=== PATIENT | male | born 1970 | race Caucasian/White ===

== ENCOUNTER → 2018-04-01 10:36 | Outpatient (CLI) | payer OTHER, SELFPAY ==
--- NOTE | 2018-04-01 10:46 | CT_ITS ---
STUDY: CT SOFT TISSUE NECK WITH CONTRAST REASON FOR EXAM: Male, 47 years old. Treatment planning, squamous carcinoma of right tonsil. RADIATION DOSAGE (If Supplied By Facility): CTDIvol = ( 12.60 ) mGy, DLP = ( 412.46 ) mGycm TECHNIQUE: The patient was scanned in a multi-detector CT scanner. High resolution transaxial imaging was performed following intravenous administration of 100ML ml of Isovue 300 contrast material. Individualized dose optimization techniques were used for this CT. COMPARISON: Whole body PET/CT March 31, 2018. FINDINGS: Normal bilateral parotid glands. Normal bilateral doweler spaces. Normal bilateral parapharyngeal spaces. Normal bilateral carotid spaces. Normal bilateral sublingual and submandibular glands and spaces. Normal visualized nasopharynx. Normal retropharyngeal space. Normal perivertebral space. There is no overtly demonstrated mass or asymmetric fullness in the right side of the oral cavity, base of the tongue, or tonsillar pillar to correlate to the area of abnormal FDG uptake on PET/CT. There are a few nonspecific left level 1B cervical lymph nodes and bilateral benign-appearing level II cervical nodes with fatty surya. There is no demonstrated solid or cystic mass lesion. There is no abnormal contrast enhancement. Normal epiglottis, bilateral vallecula and hypopharynx. The pre-epiglottic and paraglottic adipose spaces are normal. Normal visualized bilateral piriform sinuses, aryepiglottic folds, vocal cords, and arytenoid-cricoid articulations. Normal subglottic trachea. Normal bilateral lobes of the thyroid gland. Normal visualized pulmonary apices. Normal visualized paranasal sinuses. Normal visualized cervical spine. CT/Soft Tissue Neck WITH Contrast IMPRESSION: No significant masslike fullness or asymmetry in the right side of the oral cavity, base of the tongue, or tonsillar pillar to correlate to the area of abnormality on PET/CT. No suspicious adenopathy. Electronically Signed: Librado Zamora MD at 13:01 EST , Service support ,
[2018-04-01 10:51] LABS: Absolute Lymphocyte Count 2.39 X10^3/ul (0.83-4.51); Absolute Neutrophil Count 6.5 X10^3/uL (2.0-7.7); Basophil# 0.07 X10^3/uL; Basophil% 0.7 % (0-1); Eosinophil# 0.25 X10^3/uL; Eosinophils% 2.5 % (0-5); Hematocrit 42.4 % (40-54); Hemoglobin 14.3 g/dl (13.0-16.5); Lymphocyte # 2.39 X10^3/ul (4.0); Lymphocyte % 23.9 % (19-41); Mean Corp Hgb Conc 33.7 g/gl (32-36); Mean Corpuscular Hgb 29.4 pg (27.0-32.0); Mean Corpuscular Volume 87.2 fL (80-94); Mean Platelet Vol. 12.3 fl (6.2-12.0); Monocyte# 0.73 X10^3/uL; Monocyte% 7.3 % (0-10); Neutrophil # 6.51 X10^3/uL (2.7-7.7); Neutrophil % 65.2 % (47-70); Platelet Count 205 K/mm3 (150-450); RBC Distribution Width CV 14.2 % (11.6-14.6); RBC Distribution Width SD 44.5 fl (35.1-43.9); Red Blood Count 4.86 M/mm3 (4.6-6.2)
[2018-04-01 10:53] LABS: POSITIVE COUNT NO; POSITIVE DIFFERENTIAL NO; POSITIVE MORPHOLOGY NO
[2018-04-01 11:01] LABS: Creatinine, Serum 1.14 mg/dL (0.70-1.30); EST Glomerular Filtration Rate 73 mL/min (>60); Est Glom Filt Rate - Afr Amer 88 mL/min (>60)
[2018-04-01 11:21] LABS: EGFR FINGERSTICK > 60.0000 mL/min (>60)
== END ==
LOC: CT 10:37
PROVIDERS: Family Provider Family Medicine; PCP Family Medicine; Referring Provider Radiology Radiation Oncology; Visit Provider Radiology Radiation Oncology
DX: Z01.818 Encounter for other preprocedural examination (principal); C02.4 Malignant neoplasm of lingual tonsil
CPT/HCPCS: 36415; 70491; 82565; 85025; Q9967

== ENCOUNTER 2018-04-14 11:25 | Day surgery (SDC) | payer OTHER, SELFPAY ==
[2018-04-08 09:51] VITALS: BMI 36.7
[2018-04-08 10:58] VITALS: BMI 36.7
[2018-04-14] VITALS (9 sets, daily range): BP systolic 108–125; BP diastolic 73–93; PULSE 71–88; RESP 16–18; TEMP 36.5–36.9; O2SAT 93–97; BMI 36.4
[2018-04-14] MEDS: Cefazolin 2 GM in 0.9% Normal Saline 100 ML IV (13:11)
[2018-04-14] MEDS: Bupivacaine Mpf 0.5% 30 ML VIAL (13:25)
--- NOTE | 2018-04-14 14:05 | OP.PCM_ITS ---
Problem List (1) Encounter for adjustment or management of vascular access device Status: Acute (2) Oropharyngeal carcinoma Status: Acute Report of Operation Date of Procedure: 04/14/18 Pre-Operative Diagnosis: Oral pharyngeal carcinoma and need for vascular access port Post-Operative Diagnosis: Same Surgery/Procedure Performed:: Fluoroscopy and ultrasound-guided right chest port placement utilizing right IJ Description of Surgical Findings:: The patient decided immediately before surgery that he did not want a PEG tube placed. Description of Procedure: After obtaining informed consent patient was brought back to the operating room MAC anesthesia was induced and the right chest and neck were prepped in normal s terile fashion. Ultrasound was used to evaluate both IJ is in the right IJ was selected. Next, using a needle, the right IJ was accessed and guidewire was passed on into the superior vena cava under fluoroscopy guidance. A small incision was made over the puncture site and the dilator introducer was placed over the guidewire. Next this was capped and the pocket was made for the port. 1% lidocaine with epinephrine was injected in the proposed port site. An incision was made with scalpel. Electrocautery was used to make a pocket under the skin and subcutaneous tissue. Hemostasis was obtained. Next, the catheter was tunneled up to the neck incision site and placed through the introducer. The peel-away introducer was removed and the position of the catheter was confirmed on fluoroscopy. Next, the catheter was trimmed and attached to the port with the locking device. Interrupted 2-0 Vicryl sutures were used to anchor the port to the chest wall and then the port was placed inside the pocket. The pocket was then flushed with saline and the port irrigated with saline. There was good blood return and the port flushed easily. Next, heparin was injected into the port. The skin was closed with subcutaneous interrupted 3-0 Vicryl sutures and interrupted skin 3-0 nylon sutures. A single 3-0 Vicryl sutures placed under the skin at the neck incision site. Steri-Strips were pl aced as well as op sites. Patient tolerated procedure well, was taken to PACU in stable condition. Chest x-ray will be obtained. Grafts/Implants Used: 8 [employer]
--- NOTE | 2018-04-14 14:07 | DCINST_ITS ---
Discharge Diet: No Restrictions - Pain medication may cause nausea. You should typically eat light foods as you take your pain medication. Discharge Activity: Return to Normal Activity, May Shower - DO NOT SHOWER WHEN YOUR PORT IS ACCESSED. Patient may shower 2 days after surgery as long as port is not accessed. Call your doctor if your incision/area has: Continuous Slow Oozing, Sudden Increased Bleeding, Increased Pain/ Swelling, Increased Redness Call your doctor if you observe: Fever of 101 or Higher Additional Dressing/Incision Instructions:: Port may be used tomorrow for treatment of the needle removed. Place dry sterile dressing over. Allergies/Adverse Reactions: Allergies No Known Allergies Allergy (Verified 04/14/18 11:42) Medications to take at Discharge Lisinopril/Hydrochlorothiazide 20 - 25 mg PO QHS 03/27/18 Zolpidem Tartrate [Ambien] 5 mg PO QHS 03/27/18 Primary Care Physician: Chidi Barry MD [Primary Care Provider] - Test Results: Test results from this visit will be discussed in further detail at your follow- up appointment, if applicable. Please Follow Up With: Mike Muniz MD When: Please call to schedule 1 week follow up appointment. [phone]
--- NOTE | 2018-04-14 14:15 | RAD_ITS ---
STUDY: X-RAY CHEST REASON FOR EXAM: Male, 47 years old. Port placement. TECHNIQUE: Single AP portable view of the chest. COMPARISON: None. FINDINGS: A right-sided portacatheter is seen. The tip is at the junction of the superior vena cava and right atrium. Elevation of the right hemidiaphragm. The lungs are clear. There is no demonstrated pleural abnormality. Normal size heart. Normal mediastinum and surya. Normal visualized pulmonary arteries. Normal visualized aortic arch and descending thoracic aorta. Normal visualized thoracic spine. Normal visualized ribs, clavicles, and shoulders. There is no demonstrated abnormality of the visualized soft tissue structures of the upper abdomen. RAD/CXR for Line Placement IMPRESSION: The tip of the right portacatheter is at the junction of the superior vena cava and right atrium. Elevation of the right hemidiaphragm. Electronically Signed: Ernie Toth MD at 14:48 EST Tel [phone], Service support ,
== END 2018-04-14 15:19 | disposition home or self-care (01) ==
LOC: EN 11:28 → AC 11:29
PROVIDERS: Family Provider Family Medicine; PCP Family Medicine; Referring Provider Surgery; Visit Provider Surgery
PROC: (CPT 36561; principal; 2018-04-14 12:45)
DX: Z45.2 Encounter for adjustment and management of vascular access device (principal); C14.0 Malignant neoplasm of pharynx, unspecified; F32.9 Major depressive disorder, single episode, unspecified; Z79.899 Other long term (current) drug therapy; I10 Essential (primary) hypertension
CPT/HCPCS: 36561; 71045; 77001; J7120; C1788

== ENCOUNTER → 2018-05-07 14:54 | Outpatient (CLI) | payer OTHER, SELFPAY ==
[2018-05-07 08:37] VITALS: BMI 38.0
--- NOTE | 2018-05-07 14:56 | CT_ITS ---
STUDY: CT SOFT TISSUE NECK WITH CONTRAST REASON FOR EXAM: Male, 47 years old. Within the cecum this examination is performed with coronal and sagittal planes adjacent to the spleen is normal in size and RADIATION DOSAGE (If Supplied By Facility): CTDIvol = ( 13.27 ) mGy, DLP = ( 406.24 ) mGycm TECHNIQUE: The patient was scanned in a multi-detector CT scanner. High resolution transaxial imaging was performed following intravenous administration of 100ML ml of Isovue 300 contrast material. Sagittal and coronal images were reconstructed. Individualized dose optimization techniques were used for this CT. COMPARISON: None. FINDINGS: Normal bilateral parotid glands. Normal bilateral sales order processor spaces. Normal bilateral parapharyngeal spaces. Normal bilateral carotid spaces. Normal bilateral sublingual and submandibular glands and spaces. Normal visualized nasopharynx. Normal retropharyngeal space. Normal perivertebral space. Normal visualized bilateral faucial tonsils. The visualized tongue, tongue base and oropharynx are normal. The visualized cervical lymph nodes (levels I-) are within normal size limits, and maintain normal morphology. There is no demonstrated solid or cystic mass lesion. There is no abnormal contrast enhancement. Normal epiglottis, bilateral vallecula and hypopharynx. The pre-epiglottic and paraglottic adipose spaces are normal. Normal visualized bilateral piriform sinuses, aryepiglottic folds, vocal cords, and arytenoid-cricoid articulations. Normal subglottic trachea. Normal bilateral lobes of the thyroid gland. Normal visualized pulmonary apices. Normal visualized paranasal sinuses. Normal visualized cervical spine. No abnormal enhancement seen in the region of the tonsils to suggest recurrent or persistent tumor. CT/Soft Tissue Neck WITH Contrast IMPRESSION: Normal enhanced CT examination of the soft tissues of the neck. Electronically Signed: Clair Deal, at 17:00 EST Tel , Service support ,
== END ==
PROVIDERS: Family Provider Family Medicine; PCP Family Medicine; Referring Provider Radiology Radiation Oncology; Visit Provider Radiology Radiation Oncology
DX: C09.9 Malignant neoplasm of tonsil, unspecified (principal)
CPT/HCPCS: 70491; Q9967; A4216

== ENCOUNTER 2018-05-12 09:48 | Day surgery (SDC) | payer OTHER, SELFPAY ==
[2018-05-07 08:37] VITALS: BMI 38.0
[2018-05-09 12:33] VITALS: BMI 38.0
[2018-05-12 10:10] VITALS: BP 161/94; PULSE 56; RESP 16; TEMP 36.6; O2SAT 100; BMI 33.9
--- NOTE | 2018-05-12 11:00 | ESO_PTH ---
PATIENT: NICOLASA LOPEZ Jr. LOC: EN U#:[id number] AGE/SX: 47/M ROOM: RE05/12/[address]: Dr. Mike Muniz MD : 1970 BED: DIS: 05/12/2018 SPEC #: [id number] RECD: 05/12/18 12:38 STATUS: IBAN COBY #: [id number] SELWYN: 05/12/18 11:[address]: Mike Muniz DEPT: SURGICAL PATHOLOGY RECD BY: Fredy Smyth ENTERED: 05/12/18 13:22 SP TYPE: TESSA MARKHAM DR: Dr. Chidi Barry MD Tissues: Esophagus, NOS Procedures: Special Stain Group I Surgery Specimen Level IV GMS Stain (control) HEADER OPERATION: EGD (RINA), PEG tube placement PRE-OP DIAGNOSIS: Dysphagia, history oropharyngeal CA TISSUE SUBMITTED: Biopsy proximal esophagus; check for fungal organisms MICROSCOPIC DIAGNOSIS Proximal esophagus, biopsy: Acute esophagitis. Desquamated squamous epithelial cells with abundant fungal organisms consistent with ameya species. See comment. AM:denise 05/14/18 COMMENT GMS stain with matched control supports the above diagnosis. MICROSCOPIC DESCRIPTION Slides are reviewed. GROSS DESCRIPTION Received in fixative is one container labeled with the patient's name and designated biopsy proximal esophagus. The specimen consists of multiple irregular fragments of light kwok soft tissue that in aggregate measure 1.5 x 0.6 x 0.1 cm. The specimen is totally submitted in one cassette. / AM:denise 05/12/18 TC:2 CPT: 54703, 70920
--- NOTE | 2018-05-12 11:10 | PCM.HP.STD ---
Problem List (1) Oropharyngeal carcinoma Status: Chronic History of Present Illness Date of Admission: 05/12/18 The patient is a 47 year old M who is half way through radiation treatment and is undergoing chemotherapy for oral cancer. He reports he is unable to eat at this time and has reconsidered PEG tube. He has been losing weight because of poor nutritional intake. 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 Hypertension I10 Allergies No Known Allergies Allergy (Verified 05/09/18 14:14) Home Medications: Ambulatory Orders Medication Instructions Recorded Lisinopril/Hydrochlorothiazide 20 - 25 mg PO QHS 03/27/18 Zolpidem Tartrate [Ambien] 5 mg PO QHS 03/27/18 Dexamethasone [Decadron] 4 mg PO DAILY@0800 #30 tablet 04/15/18 Olanzapine [Zyprexa] 10 mg PO DAILY 8 Days #8 tablet 05/07/18 Tylenol #3 Tablet 1 tab PO PRN PRN 05/07/18 Surgical History: Surgical History (Last Reviewed 05/07/18 @ 08:35 by Corina Forrest) History of biopsy Z98.890 tonsil Surgical History: - - Port Smoking Status: Former smoker Review of Systems Constitutional: Reports: Anorexia. Denies: Fever HEENT: Reports: Difficulty Swallowing Cardiovascular: Denies: Chest Pain Respiratory: Denies: Cough Gastrointestinal: Denies: Abdominal Pain Genitourinary: Denies: Dysuria Musculoskeletal: Denies: Arm Pain, Joint Tenderness Skin: Denies: Dryness Neurological: Denies: Blurred vision VTE Information - Inpt Only VTE Present on Admission: No VTE Mechan Device Prophylaxis: SCD's Patient Problems: Active and Suspected Problems (Last Reviewed 05/07/18 @ 08:35 by Corina Forrest) Chemotherapy follow-up examination (Acute) Chemotherapy-induced nausea (Acute) Tinnitus (Acute) Dehydration (Acute) - Physical Exam General: Alert, Oriented x3, Cooperative, No apparent distress HEENT: Atraumatic, PERRLA, EOMI Neck: No JVD Lungs: Normal air movement Cardiovascular: Regular rate, Regular Rhythm Abdomen: Soft, Non Tender, Non-Distended Vital Signs Temp Pulse Resp BP Pulse Ox 97.8 F 56 L 16 161/94 H 100 05/12/18 10:10 05/12/18 10:10 05/12/18 10:10 05/12/18 10:10 05/12/18 10:10 Oxygen Delivery Method Room Air Weight: 229 lb 15.074 oz Body Mass Index (BMI) 33.9 Assessment/Plan All Active Problems (Last Reviewed 05/07/18 @ 08:35 by Corina Forrest) Educational circumstance (Acute) Encounter for adjustment or management of vascular access device (Acute) Chemotherapy follow-up examination (Acute) Chemotherapy-induced nausea (Acute) Tinnitus (Acute) Dehydration (Acute) 47 yo Male with dysphagia and radiation esophagitis 1. Patient is here for PEG placement. I explained the risks including but not limited to bleeding, infection, injury to other organs such as colon or stomach, dislodgement of PEG. Patient understands all of the risks and is willing to proceed with EGD and PEG. Mike Muniz MD
[2018-05-12 11:45] VITALS: BP 124/94; BP 161/94; PULSE 72; RESP 15; TEMP 36.6; O2SAT 94
--- NOTE | 2018-05-12 11:45 | OP.ENDO_ITS ---
Patient Name: Cuauhtemoc Hernandez Procedure Date: 05/12/2018 11:08 AM Date of : 1970 Age: 47 Procedure: Upper GI endoscopy Indications: Esophageal dysphagia, Place PEG due to dysphagia Providers: Mike Muniz MD Referring MD: Mike Muniz MD Medicines: Monitored Anesthesia Care Patient Profile: This is a 47 year old male. Refer to note in patient chart for documentation of history and physical. Complications: No immediate complications. Estimated blood loss: Minimal. Procedure: Pre-Anesthesia Assessment: - Prior to the procedure, a History and Physical was performed, and patient medications and allergies were reviewed. The patient's tolerance of previous anesthesia was also reviewed. The risks and benefits of the procedure and the sedation options and risks were discussed with the patient. All questions were answered, and informed consent was obtained. Prior Anticoagulants: The patient has taken no previous anticoagulant or antiplatelet agents. After reviewing the risks and benefits, the patient was deemed in satisfactory condition to undergo the procedure. After obtaining informed consent, the endoscope was passed under direct vision. Throughout the procedure, the patient's blood pressure, pulse, and oxygen saturations were monitored continuously. The gastroscope was introduced through the mouth, and advanced to the second part of duodenum. The upper GI endoscopy was accomplished without difficulty. The patient tolerated the procedure well. Scope In: 11:22:49 AM Scope Out: 11:31:44 AM Total Procedure Duration Time 0 hours 8 minutes 55 seconds Findings: Mildly severe esophagitis with no bleeding was found. Biopsies were taken with a cold forceps for histology. The exam was otherwise without abnormality. The patient was placed in the supine position for PEG placement. The stomach was insufflated to appose gastric and abdominal felipe. A site was located in the antrum of the stomach with good transillumination and manual external pressure for placement. The abdominal wall was marked and prepped in a sterile manner. The area was anesthetized with 4 mL of 1% lidocaine. The trocar needle was introduced through the abdominal wall and into the stomach under direct endoscopic view. A snare was introduced through the endoscope and opened in the gastric lumen. The guide wire was passed through the trocar and into the open snare. The snare was closed around the guide wire. The endoscope and snare were removed, pulling the wire out through the mouth. A skin incision was made at the site of needle insertion. The externally removable gastrostomy tube was lubricated. The G-tube was tied to the guide wire and pulled through the mouth and into the stomach. The trocar needle was removed, and the gastrostomy tube was pulled out from the stomach through the skin. The external bumper was attached to the gastrostomy tube, and the tube was cut to remove the guide wire. The final position of the gastrostomy tube was confirmed by relook endoscopy, and skin marking noted to be 3.5 cm at the external bumper. The final tension and compression of the abdominal wall by the PEG tube and external bumper were checked and revealed that the bumper was loose and lightly touching the skin. The feeding tube was capped, and the tube site cleaned and dressed. Impression: - Mildly severe radiation esophagitis. Biopsied. - The examination was otherwise normal. - An externally removable PEG placement was successfully completed. Recommendation: - Discharge patient to home. - Please follow the post-PEG recommendations including: advance food and medications per primary care provider, external bolster 1 cm from abdominal wall, change dressing once per day, may use PEG tomorrow for feedings and check site for bleeding q 4 hrs. - Return to my office in 1 week. - Continue present medications. Procedure Code(s): --- Professional --- 04203, Esophagogastroduodenoscopy, flexible, transoral; with directed placement of percutaneous gastrostomy tube 99494, 51, Esophagogastroduodenoscopy, flexible, transoral; with biopsy, single or multiple Diagnosis Code(s): --- Professional --- K20.8, Other esophagitis T66.XXXA, Radiation sickness, unspecified, initial encounter R13.14, Dysphagia, pharyngoesophageal phase Z43.1, Encounter for attention to gastrostomy CPT copyright 2017 [employer]. All rights reserved. The codes documented in this report are preliminary and upon vocational education professional review may be revised to meet current compliance requirements. Mike Muniz MD 05/12/2018 11:45:12 AM This report has been signed electronically. Number of Addenda: 0 Note Initiated On: 05/12/2018 11:08 AM
[2018-05-12 11:50] VITALS: BP 131/90; BP 161/94; PULSE 70; RESP 16; O2SAT 95
[2018-05-12 11:55] VITALS: BP 138/91; BP 161/94; PULSE 62; RESP 16; O2SAT 97
[2018-05-12 12:00] VITALS: BP 139/93; BP 161/94; PULSE 61; RESP 16; TEMP 36.3; O2SAT 97
[2018-05-12 12:41] VITALS: BP 161/94
== END 2018-05-12 12:44 | disposition home or self-care (01) ==
LOC: EN 09:48 → AC 09:49
PROVIDERS: Family Provider Family Medicine; PCP Family Medicine; Referring Provider Surgery; Visit Provider Surgery
PROC: 0DJ08ZZ Inspection of Upper Intestinal Tract, Via Natural or Artificial Opening Endoscopic (ICD-10-PCS; CPT 43235; principal; 2018-05-12 10:55)
DX: K20.8 Other esophagitis (principal); T66.XXXA Radiation sickness, unspecified, initial encounter; Z43.1 Encounter for attention to gastrostomy; C09.9 Malignant neoplasm of tonsil, unspecified; I10 Essential (primary) hypertension; G25.81 Restless legs syndrome; Z79.899 Other long term (current) drug therapy; Z87.891 Personal history of nicotine dependence
CPT/HCPCS: 43239; 43246; 88305; 88312; 97802; J7120; A4216

== ENCOUNTER 2018-06-20 13:00 | Outpatient (RCR) | payer OTHER, SELFPAY ==
[2018-06-20 12:44] VITALS: BMI 31.4
--- NOTE | 2018-06-20 13:35 | SOAP_ITS ---
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 Whittington). The Patient denies any overt signs or symptoms of aspiration throughout the chemoradiation and post irradiation cycle. The Patient has demonstrated a significant unintentional weight loss (251.9 lbs. on 04/15/2018 ? 213 lbs. on 06/17/2018), with an overall 15.5% unintentional weight loss over the last 2 months requiring percutaneous endoscopic gastrostomy (PEG) tube placement (05/12/2018). 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 He further reports rather persistent odynophagia (~4-5) that has additionally complicated intake levels. He reports mild trismus post irradiation, though this has had a minimal impact to date. The Patient reports almost no solid intake since late April, solely relying on his PEG tube. He denies the presence of nausea and / or emesis. The Patient reports persistent xerostomia (Grade II-III per RTOG Acute Morbidity Scoring Criteria) with continued use of oral rinses per recommendations; he denies diurnal sialorrhea; denies the presence of reflux, globus sensation, substernal discomfort, or persistent eructation; denies the presence of suboptimal intake behaviors (tachyphagia, bolus bolting, or aerophagia); and denies any current or previous issues with aspiration related pulmonary complications, to include pneumonia, bronchitis, or unexplained asthma symptoms; The Patient is fully ambulatory, with no difficulties with posture maintenance; appears well nourished despite the recent significant weight loss; he appears cognitively intact, denies any changes in the cognitive communication profile; he Is independent for all ADLs and IADLs, is a community otr tanker truck driver, and is currently vocationally active (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 PREVIOUS MODIFIED BARIUM SWALLOW STUDY: none ADDITIONAL OBJECTIVE ASSESSMENT RESULTS: 03/31/[address] tumor revealed abnormal examination indicative of malignant viable neoplasm with increased glucose concentration demonstrated in the right oral cavity, pharyngeal mucosal space contiguous to the tongue base extending to the tonsillar pillar. 05/07/[address] of the neck revealed normal enhanced CT examination of the neck. 05/07/[address] revealed no significant mass like fullness or asymmetry in the right side of the oral cavity, base of tongue, or tonsillar pillar to correlate to the area of abnormality on the PET / CT; no suspicious adenopathy. ORAL MOTOR / MODIFIED CRANIAL NERVE ASSESSMENT: CNV, VII, IX, X, and XII grossly intact. Natural upper / lower dentition in adequate repair, prior restorative work completed. Small ulceration located in the left posterior portion of the oral cavity at the juncture of the mandibular and maxillary arch. Mild xerostomia (RTOG grade II) with mild oral pain (Grade I per Oral Mucositis Grading Scale) and mild halitosis. Appropriate volitional cough intensity. Reported restricted mandibular opening post irradiation with Inter-Incisor Distance (IID): 3.25 cm (Grade I) SUPPLEMENTARY DYSPHAGIA ASSESSMENT RESULTS: Total Dysphagia Risk Score (TDRS): 19 ? High risk (TDRS > 18) Inter-incisor Distance (IID): 3.25 cm (Grade I: Inter-incisor distance equal to or more than 3 cm) [facility] Xerostomia Questionnaire: * RTOG Radiation Morbidity Scoring Criteria for Xerostomia: Grade II-III Oral Mucositis Grading Scale: Grade II Scale of Subjective Total Taste Acuity (STTA): Grade III-IV (severe / almost complete loss) Sialorrhea Scoring Scale (SSS): 1/9 (dry, never drools) Reflux Symptom Index (RSI): 8 (>13 may be indicative of significant reflux) OR Manolo Dysphagia Inventory (MDADI): Global: 5/5 Physical: 2440 Emotional: 3030 Functional: Composite score: 73 Mean Point Score: 3.84 Final Score: 76.84 Functional Assessment of Cancer Therapy ? Head & Neck (FACT H&N): 82 Physical Well-Bein Social / Family Well- Bein Emotional Well-Bein Functional Well-Bein Additional Concern: 20 Diego Index of [place] in Activities of Daily Livin (independent) [place] ? Johnson Instrumental Activities of Daily Living Scale (IADL): 8/ (independent) Karnofsky Performance Scale Index: 100 (independent) CLINICAL ASSESSMENT OF SWALLOW FUNCTION (STRUCTURED): Repetitive Saliva Swallowing Test (RSST):Pass; > 2 dry swallows within 30 seconds. Modified Water Swallowing Test (MWST): 5 (of 5); normal 1oz (30mL) Water Swallowing Test (WST): 1 (of 5); normal 3oz (90mL) Water Swallow Test (3oz WST): Normal Rowe Assessment of Swallowing Ability ? Cancer (MASA-C): 179 (mild) MASA-C Dysphagia Risk Rating: Probable; moderate evidence for disorder Performance Status Scale for Head & Neck Cancer Patients (PSS-HN): AAA/300 Normalcy of Diet: 20 ? warm liquids Public Eatin ? no restriction of place, food, or company Understandability of Speech: 100 ? always understandable Swallowing Performance Scale (PSP): 3 (mild) CLINICAL ASSESSMENT OF SWALLOW FUNCTION (SUBJECTIVE): ORAL PREPARATORY PHASE: oral preparatory phase marked by very mild (albeit effective) mastication inefficiency complicated by significant hypogeusia / ageusia / dysgeusia and oral pain and mild trismus (grade I); sufficient oral containment; preserved management of breathing / bolus formation without disrupted E ? S ? E pattern ORAL TRANSITIONAL PHASE: oral transitional phase appears unremarkable; no signs of transitional incompetence; no signs of bolus consolidation impairments; no signs or symptoms of premature posterior bolus loss. PHARYNGEAL PHASE: pharyngeal phase marked by pharyngeal phase appears unremarkable; appropriate hyolaryngeal excursion upon digital palpation; no obvious findings suggestive of pharyngeal phase delay / dyssynchrony; no subjective signs of pharyngeal dysmotility; no subjective signs of velopharyngeal impairments; no signs or symptoms of penetration / aspiration throughout trials; mild to moderate odynophagia complicating the pharyngeal phase of deglutition. ESOPHAGEAL PHASE: esophageal phase appears unremarkable COMPLICATING FACTORS: Complicating factors include rather persistent dysgeusia / ageusia / dysgeusia, odynophagia, and poor intake quantities. 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 Whittington). RECOMMENDATIONS: Cannot definitively rule out silent aspiration at bedside. The Patient is at higher risk of silent aspiration particularly within the initial 3-6 months post irradiation; will recommend further assessment of the oropharyngeal swallow function under fluoroscopy. The patient is at higher risk for continual changes and possible decline in both swallow functioning / dysphagia severity and cognitive communication functioning throughout the chemoradiation intervention cycle; would benefit from continued monitoring across all domains. The patient is at HIGH risk for continual changes and possible decline in both swallow functioning / dysphagia severity and cognitive communication functioning post chemoradiation intervention; would benefit from continued monitoring across all domains. The Patient requires intensive skilled speech-language intervention targeting diet texture management and training / implementation of recommended compensatory strategies; training and implementation of a home based prophylactic swallowing exercise program to promote the highest level of preserved post- irradiation swallow functioning; training and implementation of a Trismus based exercise program to promote improved (gagandeep-irradiation) and sustained (post-irradiation) mandibular functioning; training and implementation of a home oral care protocol to reduce the effects of xerostomia and improve / maintain the integrity of the oral mucosa reducing the risk of aspiration related pulmonary complications; Patient / caregiver education regarding post-irradiation dysphagia and associated symptomology; with goal adjustment pending MBS completion. DIET TEXTURE RECOMMENDATIONS: Will recommend a regular / soft textured, thin liquid diet with the following recommended aspiration precautions in place: reduced bolus volume / rate of ingestion, avoiding dry textures with copious moisture provided with all solids and semisolids, frequent liquid chaser, seated upright at 90 degrees during PO intake, remain upright for 30-60 minutes post meal (GERD precaution). FUNCTIONAL OUTCOMES: OUTCOME 1: The Patient will tolerate the least restrictive means of nutrition to facilitate adequate hydration / nutrition with optimum safety and efficiency of swallowing function during P.O. intake without overt signs and symptoms of aspiration. OUTCOME 2: The Patient will demonstrate and utilize recommended compensatory swallowing techniques to facilitate improved airway protection and decreased risk for aspiration during PO intake. OUTCOME 3: The Patient will demonstrate and utilize recommended oropharyngeal range of motion exercise within the Patients clinical and home based program to improve and maintain overall oropharyngeal functioning and reducing the effects of post-irradiation dysphagia, with minimal cueing and prompting provide by the clinician, across 2 out of 3 sessions. OUTCOME 4: The Patient will demonstrate and utilize recommended mandibular range of motion stretching and exercise within the Patients clinical and home based program to improve and maintain overall mandibular functioning and oral preparatory functioning reducing the effects of trismus, with minimal cueing and prompting provide by the clinician, across 2 out of 3 sessions. OUTCOME 5: The Patient will participate in a home based oral care program established during intervention sessions to facilitate improved and maintained integrity of the oral mucosa throughout the irradiation process with complete independence. OUTCOME 6: The Patient will participate in a Modified Barium Swallow (MBS) study to objectively assess the Patient?s oropharyngeal swallowing function, to determine the least restrictive means of nutrition, to objectively assess the effectiveness of previously identified strategies / precautions, and to identify appropriate intervention approaches / strategies to implement during treatment sessions at the supervised level. OUTCOME 7: Goal adjustment as needed post MBS Kvng Yang M.A., CCC-EMERGENCY CARE TECH MBSImP Certified, LSVT Certified [facility] Speech-Language Pathology Department [email or web address]
--- NOTE | 2019-01-09 14:45 | HP.SP.DC_ITS ---
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 Whittington), with findings indicating mild oropharyngeal dysphagia with grade I trismus (IID 3.25 cm). Recommendations following the assessment included further assessment of the oropharyngeal swallow function under fluoroscopy in addition to continued skilled speech- language intervention targeting diet texture management and training / implementation of recommended compensatory strategies; training and implementation of a home based prophylactic swallowing exercise program to promote the highest level of preserved post-irradiation swallow functioning; training and implementation of a Trismus based exercise program to promote improved (gagandeep-irradiation) and sustained (post-irradiation) mandibular functioning; training and implementation of a home oral care protocol to reduce the effects of xerostomia and improve / maintain the integrity of the oral mucosa reducing the risk of aspiration related pulmonary complications; and Patient / caregiver education regarding post-irradiation dysphagia and associated symptomology. At this time, no further sessions have been scheduled. Given the rather significant laps between intervention sessions, it is appropriate to discharge from the skilled speech-language pathology caseload at this time, as he will very likely require a re-assessment prior to re-initiation of intervention; will gladly re-initiate intervention as needed moving forward. Would consider the Patient to be at HIGH risk for continual changes and possible decline in swallow functioning / dysphagia severity post irradiation (late effects of radiation fibrosis can occur upwards of 40 years post treatment); would benefit from continual monitoring and yearly follow up modified barium swallow studies for at least 5 years post irradiation.
== END 2018-06-20 19:00 | disposition home or self-care (01) ==
LOC: SP 13:00
PROVIDERS: Family Provider Family Medicine; PCP Family Medicine; Visit Provider Nurse Practitioner Family
DX: C09.9 Malignant neoplasm of tonsil, unspecified (principal)
CPT/HCPCS: 92610

== ENCOUNTER → 2018-12-26 | Outpatient (CLI) | payer OTHER, SELFPAY ==
[2018-10-01 08:57] VITALS: BMI 29.7
--- NOTE | 2018-12-26 17:00 | CT_ITS ---
STUDY: CT SOFT TISSUE NECK WITH CONTRAST REASON FOR EXAM: Male, 48 years old. Status post chemoradiation and surgery for right tonsillar cancer. Follow-up. RADIATION DOSAGE (If Supplied By Facility): CTDIvol = ( 20.97 ) mGy, DLP = ( 1675.56 ) mGycm TECHNIQUE: The patient was scanned in a multi-detector CT scanner. High resolution transaxial imaging was performed following intravenous administration of 100 IV Isovue 300. Sagittal and coronal images were reconstructed. Individualized dose optimization techniques were used for this CT. COMPARISON: PET CT 09/22/2018. CT neck 05/07/2018. FINDINGS: No visible tongue base or other mucosal mass. Postradiation changes with mild diffuse mucosal edema, including of the epiglottis and aryepiglottic folds, and mild skin thickening and reticular subcutaneous changes in the anterior neck, all new compared to 05/07/2018. No suspicious lymph nodes. Glottis and subglottic trachea and visualized mediastinum unremarkable, lung apices clear. Skull base and visualized paranasal sinuses, muscles of mastication unremarkable. Normal vascular structures. Parotid, submandibular and thyroid glands are unremarkable. CT/Soft Tissue Neck WITH Contrast IMPRESSION: Expected post radiation changes. No visible residual tumor or evidence of metastatic disease. Electronically Signed: Carlos Felix, at 22:59 EDT Tel , Service support ,
--- NOTE | 2018-12-26 17:00 | CT_ITS ---
STUDY: CT CHEST WITH CONTRAST REASON FOR EXAM: Male, 48 years old. Oropharyngeal cancer RADIATION DOSAGE (If Supplied By Facility): DLP = ( 1675.56 ) mGycm TECHNIQUE: Transaxial imaging was performed following intravenous administration of 100 ml of Isovue 300 contrast material. Coronal and sagittal reformatted images were created. Individualized dose optimization techniques were used for this CT. COMPARISON: None FINDINGS: There are no pulmonary infiltrates or pleural effusions. There are no pulmonary nodules or masses. There is no pneumothorax. The heart and pericardium are within normal limits. There is no thoracic lymphadenopathy. There is no evidence of thoracic aortic aneurysm. Images through the upper abdomen demonstrate no significant abnormality. There are no destructive osseous lesions. CT/Chest WITH Contrast IMPRESSION: Unremarkable contrast-enhanced CT of the chest. Electronically Signed: Charly Pyle, at 17:58 EDT Tel , Service support ,
[2018-12-26 17:16] LABS: CREATININE FINGERSTICK 1.2 mg/dL (0.70-1.30); EGFR FINGERSTICK > 60.0000 mL/min (>60)
[2018-12-26 17:33] LABS: Absolute Lymphocyte Count 0.92 X10^3/uL (0.83-4.51); Absolute Neutrophil Count 4.4 X10^3/uL (2.0-7.7); Basophil# 0.05 X10^3/uL; Basophil% 0.8 % (0-1); Eosinophil# 0.13 X10^3/uL; Eosinophils% 2.2 % (0-5); Hematocrit 34.3 % (40-54); Hemoglobin 11.8 g/dL (13.0-16.5); Lymphocyte # 0.92 X10^3/ul (4.0); Lymphocyte % 15.6 % (19-41); Mean Corp Hgb Conc 34.4 g/dL (32-36); Mean Corpuscular Volume 84.3 fL (80-94); Mean Platelet Vol. 11.8 fl (6.2-12.0); Monocyte# 0.38 X10^3/uL; Monocyte% 6.5 % (0-10); NRBC Flagged by Analyzer 0 % (0-5); Neutrophil % 74.7 % (47-70); Platelet Count 161 K/mm3 (150-450); RBC Distribution Width CV 13.4 % (11.6-14.6); RBC Distribution Width SD 41.3 fl (35.1-43.9); Red Blood Count 4.07 M/mm3 (4.6-6.2); White Blood Count 5.9 K/mm3 (4.4-11.0)
[2018-12-26 18:15] LABS: ALB/GLOB Ratio 1.4 RATIO (0.9-2.4); AST(SGOT) 13 U/L (15-37); Alanine Aminotransfer ALT/SGPT 16 U/L (16-61); Albumin, Serum 3.8 g/dL (3.2-5.0); Alkaline Phosphatase 86 U/L (45-117); Anion Gap 4 (5-15); BUN 13 mg/dL (7-18); BUN/Creat Ratio 11.4 RATIO (10-20); Chloride 106 mmol/L (98-107); Creatinine, Serum 1.14 mg/dL (0.70-1.30); EST Glomerular Filtration Rate 73 mL/min (>60); Est Glom Filt Rate - Afr Amer 88 mL/min (>60); Ferritin 246 ng/mL (26-388); Globulin 2.7 g/dL (2.2-4.2); Glucose 86 mg/dL (74-106); Iron 47 ug/dL (65-175); Iron Binding Capacity,Total 249 ug/dL (250-450); PERCENT IRON SATURATION 18.9 % (15.0-55.0); Potassium 3.4 mmol/L (3.5-5.1); Protein, Total 6.5 g/dL (6.4-8.2); Sodium Level 140 mmol/L (136-145); T4 Free Direct 0.87 ng/dL (0.76-1.46); Thyroid Stim Hormone (TSH) 2.66 uIU/mL (0.358-3.74)
== END | disposition home or self-care (01) ==
PROVIDERS: Family Provider Family Medicine; PCP Family Medicine; Referring Provider Internal Medicine Medical Oncology; Visit Provider Internal Medicine Medical Oncology
DX: C09.9 Malignant neoplasm of tonsil, unspecified (principal)
CPT/HCPCS: 36415; 70491; 71260; 80053; 82728; 83540; 83550; 84439; 84443; 85025; Q9967

== ENCOUNTER 2024-07-10 07:57 | Emergency (ER) | payer OTHER, SELFPAY ==
[2024-07-10 07:58] VITALS: BP 144/85; PULSE 79; RESP 16; TEMP 36.1; O2SAT 98
--- NOTE | 2024-07-10 08:20 | RAD_ITS ---
PROCEDURE: ANKLE MIN 3 VIEWS REASON FOR EXAM: Left posterior ankle pain. TECHNIQUE: 3 views of the left ankle COMPARISON: None FINDINGS: No visible fracture. No suspicious bone lesion.. There is evidence of a spur at the insertion of the Achilles tendon. Normal alignment. Mortise appears intact. No effusion. Soft tissues are unremarkable. RAD/Ankle min 3 Views IMPRESSION: No acute abnormality is seen. A calcaneal spur is seen at the insertion of the Achilles tendon. Reading Location: [id number]
--- NOTE | 2024-07-10 08:28 | EX.ED.DYSGE1 ---
HPI History of Present Illness Chief Complaint: Lower Extremity Injury Informant: patient and spouse/S.O. Narrative Narrative: 53-year-old male presenting to the emergency room with left ankle pain. Patient states that 2 evenings ago he got out of bed and felt pain in the posterior aspect of his ankle along his Achilles tendon. He states that since then he has had pain particularly with walking. He states he has been walking more flat-footed which seems to help. He denies any known injury. He knows he is treated for hypertension. No immunosuppression. No known inflammatory arthropathies. Not on any antibiotics. [facility] Medical History (Updated 07/10/24 @ 08:[address] Zachariah Vo DO) Hypertension BCC (basal cell carcinoma) Malignant neoplasm of tonsil Home Medications ?Medication ?Instructions ?Recorded ?Last Taken ?Type zolpidem 5 mg tablet 5 mg PO QHS 03/27/18 Unknown History lisinopril 10 1 ea PO DAILY 12/30/18 Unknown History mg-hydrochlorothiazide 12.5 mg tablet prednisone 20 mg tablet 60 mg (3 x 20 mg) PO DAILY #15 07/10/24 Unknown Rx TABLETS Allergy/AdvReac Type Severity Reaction Status Date / Time No Known Allergies Allergy Verified 07/10/24 07:58 Family History Mother Hypertension Seizures Father CVA (cerebral vascular accident) Surgical History S/P percutaneous endoscopic gastrostomy (PEG) tube placement History of biopsy Social History Smoking Status: Current every day smoker tobacco type: cigarettes alcohol intake: never ROS ROS ED Constitutional Constitutional ED: Denies chills, fever(s) or weight loss Eyes Eyes: Denies change in vision or diplopia ENT ENT ED: Denies ear pain, rhinorrhea or sore throat Cardiovascular Cardiovascular: Denies chest pain, orthopnea, palpitations or racing heartbeat Respiratory/Chest Respiratory/Chest: Denies cough, dyspnea or orthopnea Gastrointestinal Gastrointestinal: Denies abdominal pain, diarrhea, nausea or vomiting Genitourinary Genitourinary ED: Denies dysuria, hematuria or urinary frequency Musculoskeletal Musculoskeletal: Reports other Details: Left ankle pain ; Denies arthralgias or myalgias Integumentary Denies abscess or rash Neurologic Neurologic: Denies headache(s) or weakness Psychiatric Psychiatric: Denies anxiety, depression, suicidal ideation or suicidal thoughts Endocrine Endocrinology: Denies polydipsia, polyphagia or polyuria Allergic/Immunologic Allergic/Immunologic ED: Denies mouth swelling, tongue swelling or urticaria EXAM Physical Exam Const Vital Signs: 07/10/24 07:58 Temperature 97.0 F L Temperature Source Temporal Pulse Rate 79 Respiratory Rate 16 Blood Pressure 144/85 H Blood Pressure Mean 104 Pulse Ox 98 Oxygen Delivery Method Room Air Positive well nourished and well developed General Appearance ED: well developed HEENT Reports normocephalic, head/scalp atraumatic and moist mucous membranes Eyes PERRL and EOMs intact bilaterally Neck no lymphadenopathy, supple and no JVD Resp normal respiratory effort and clear to auscultation bilaterally Cardio regular rate, regular rhythm and no murmurs GI normal to inspection, nondistended, normoactive bowel sounds and non-tender Palpation: soft Back/Spine no CVA tenderness and normal ROM Extremity Extremity Narrative: Achilles tendon palpates and functionally is intact. There is no calf tenderness. No fibular head tenderness. Did not appreciate any ankle swelling or ecchymosis or erythema. He has some mild tenderness to palpation over the lateral aspect of the distal tendon just above the insertion point. There is no foot swelling. General Extremety ED: Negative for edema General Extremity: Negative for edema Neuro oriented x3 and CN's II-XII intact bilaterally Sensorium / Orientation: alert Motor Exam: strength 5/5 throughout Psych mental status grossly normal Mood & Affect: Negative for depressed or tearful Skin no rashes or lesions noted and no wounds MDM MDM MDM Narrative Medical decision making narrative: Differential diagnosis includes but not limited to tendinitis ligamentous sprain neurovascular injury fracture bone spur arthritis tendon rupture DVT peripheral artery disease My independent interpretation of the plain films of the left ankle is calcaneal spur at the level of the Achilles tendon insertion. Clinically I think this is more of a tendinitis. Patient now notes that he has stopped wearing high laced boots at work and went for more of a nontight fitting boot. He wonders if that has caused a development of his symptoms. Clinically I think this is tendinitis. Would recommend ice anti-inflammatories short course of prednisone Rc wrap. If symptoms or not improving he should follow-up with orthopedics or podiatry. History & Record Review Discussion w/independent historian: Patient Radiography Diagnostic Testing: Clinical Impression(s) from Imaging Studies Ankle X-Ray 07/10/24 08:20 IMPRESSION: No acute abnormality is seen. A calcaneal spur is seen at the insertion of the Achilles tendon. Reading Location: [id number] Discharge Plan Triage Chief Complaint: Lower Extremity Injury Other Complaint: Chest Other ED Provider: Zachariah Vo Dx/Rx/DC Orders Clinical Impression: Achilles tendinitis, Calcaneal spur Instructions: ED Tendonitis Prescriptions: New prednisone 20 mg tablet 60 mg PO DAILY Qty: 15 0RF No Action zolpidem 5 MG tablet 5 mg PO QHS lisinopril-hydrochlorothiazide 1 EACH tablet 1 ea PO DAILY Primary Care Provider: Chidi Barry Referrals: Chidi Barry MD [Primary Care Provider] - Activity Restrictions/Additional Instructions: Rc wrap to help limit movement at the ankle. I would recommend ice and 20-minute sessions 3-4 times per day. Ibuprofen 600 mg every 6 hours for pain which will also help for inflammation. I wrote for short course of prednisone. If you are not improving I would recommend follow-up with orthopedics. Please wear good supportive boot. Print Language: Yoruba Disposition Disposition: Home, Self Care
[2024-07-10 09:04] VITALS: BP 133/84; PULSE 74; RESP 16; TEMP 36.6; O2SAT 99
== END 2024-07-10 09:05 | disposition home or self-care (01) ==
PROVIDERS: Emergency Provider Emergency Medicine; PCP Family Medicine; Visit Provider Emergency Medicine
DX: M25.572 Pain in left ankle and joints of left foot (principal); Z93.1 Gastrostomy status; M77.32 Calcaneal spur, left foot; I10 Essential (primary) hypertension; M76.60 Achilles tendinitis, unspecified leg; Z79.899 Other long term (current) drug therapy; F17.210 Nicotine dependence, cigarettes, uncomplicated
CPT/HCPCS: 73610; 99283